=== PATIENT | female | born 1970 | race Caucasian/White ===

== ENCOUNTER 2023-02-06 09:59 | Emergency (ER) | payer BC ==
[~2023-02-06] VITALS: Ht 157.5 cm; Wt 88.5 kg
[2023-02-06 09:59] VITALS: BP 141/90; PULSE 84; RESP 18; TEMP 98.9; O2SAT 98
[2023-02-06] MEDS ORDERED: NS 1000ML 1,000 ML STA (10:08)
[2023-02-06] MEDS ORDERED: OFIRMEV 1000 MG/100 ML 100 ML IV STA (10:08)
[2023-02-06] MEDS ORDERED: PHENERGAN IV STA (10:08)
[2023-02-06] MEDS ORDERED: NS 1000ML 1,000 ML ONE (10:23)
[2023-02-06] MEDS ORDERED: OFIRMEV 1000 MG/100 ML 100 ML IV ONE (10:23)
[2023-02-06] MEDS ORDERED: PHENERGAN ONE (10:24)
[2023-02-06 10:31] LABS: BASOPHIL % 0.5 % (0.0-0.2); EOSINOPHIL # 0.1 10^3/uL (0.0-0.2); EOSINOPHIL % 1.3 % (0.0-5.0); HEMATOCRIT(ML) 40.9 % (36.0-46.0); HEMOGLOBIN 13.4 g/dL (12.0-15.0); LYMPHOCYTES # 0.61 10^3/uL1 (1.0-4.8); MEAN CORP HGB 28.5 pg (26-34); MEAN CORP HGB CONCENTRATION 32.8 g/dL (33-36.5); MEAN CORP VOLUME 86.8 fL (78-100); MONOCYTES # 0.8 10^3/uL (0.3-0.8); MONOCYTES % 9.9 % (5.0-12.0); NEUTROPHIL # 6.1 10^3/uL (1.8-7.7); PLATELET COUNT 273 10^3/uL (150-400); RED BLOOD CELL 4.71 10^6/uL (4.00-5.20); RED CELL DISTRIBUTION WIDTH 12.4 % (11.5-14.5); WHITE BLOOD CELL 7.7 10^3/uL (4.5-11.0)
[2023-02-06 10:43] LABS: +ADD MANUAL DIFF(NO CHRG) NO
[2023-02-06 10:46] LABS: PROTHROMBIN PROTIME 10.4 SEC (9.7-11.6)
[2023-02-06 10:51] LABS: ALBUMIN(ML) 3.4 g/dL (3.4-5.0); ALBUMIN/GLOBULIN RATIO 0.918; ANION GAP 16.2; CALCIUM 9.6 mg/dL (8.4-10.5); CARBON DIOXIDE 22.5 mmol/L (20.0-32); CREATININE SERUM 0.75 mg/dL (0.59-1.40); EST GFR, NON-AA 81.1 (>/=60); POTASSIUM 3.7 mmol/L (3.6-5.2)
[2023-02-06 10:54] LABS: BILIRUBIN,URINE 1+ (NEGATIVE); LEUKOCYTE ESTERASE ,URINE NEGATIVE (NEGATIVE); NITRATE,URINE NEGATIVE (NEGATIVE); PH,URINE 5.5 (4.5-8.0); UROBILINOGEN,URINE 0.2 E.U./dL (0.2)
[2023-02-06 11:00] LABS: UAMPH METHAMP(SCRN) PRESUMPTIVE POSITIVE (co1000ng/mL); UR MDMA (ECSTASY) SCRN NEGATIVE (c/o300ng/mL); UR METHADONE SCRN NEGATIVE (c/o300ng/mL); UR OPIATE SCRN NEGATIVE (c/o300ng/mL); UR PHENCYCLIDINE (PCP) SCRN NEGATIVE (c/o 25ng/mL); UR TETRAHYDROCANNABINOL SCRN NEGATIVE (c/o 50ng/mL)
[2023-02-06 11:12] LABS: UA COLOR AMBER
== END 2023-02-06 13:13 | disposition home or self-care (01) ==
LOC: ER 09:59
DX: R51.9 Headache, unspecified (principal); M35.00 Sjogren syndrome, unspecified
CPT/HCPCS: 99285; 70450; 96365; 71045; 96366; 96375; 87086; 70498; 70496; 80053; 85025; 36415; 84484; 80307; 82077; 81001; 85610; 85730; 84703; 93005; J7030; J0131; J2550; 80324; Q9965